=== PATIENT | male | born 1970 ===

== ENCOUNTER 2022-04-16 13:22 | Outpatient (REF) | payer OTHER, SELFPAY ==
[2022-04-16 15:30] LABS: HCT 42.6 % (40.0-50.0); HGB 14.6 g/dL (13.5-17.5); MCHC 34.3 % (32.0-36.0); MCV 85 fL (80-95); MPV 10.4 fL (8.0-11.0); Platelet Count 295 10^3/uL (130-400); RBC 5.03 10^6/uL (4.36-5.78); RDW 12.9 % (11.8-14.1); RDW-SD 39.6 fL; WBC 7.59 10^3/uL (4.4-10.8)
[2022-04-16 15:46] LABS: ALT 23 U/L (16-63); AST 17 U/L (15-37); Albumin 4.4 g/dL (3.4-5.0); Alkaline Phosphatase 70 U/L (46-116); Anion Gap 11.1 mmol/L (3-11); BUN 16 mg/dL (7-18); Bilirubin, Total 0.8 mg/dL (0.2-1.0); CO2 24.9 mmol/L (21.0-32.0); CREATININE 0.9 mg/dL (0.70-1.30); Calcium 9.6 mg/dL (8.5-10.1); Calculated LDL 190 mg/dL (<100); Chloride 103 mmol/L (98-107); Cholesterol 270 mg/dL (<200); Glucose 104 mg/dL (74-106); HDL Cholesterol 50 mg/dL (40-60); Sodium 139 mmol/L (136-145); TSH (W/Ref FT4) 3.76 uIU/mL (0.36-3.74); Total Protein 8.1 g/dL (6.4-8.2); Triglyceride 154 mg/dL (<150)
[2022-04-16 16:08] LABS: FREE T4 0.75 ng/dL (0.76-1.46)
== END 2022-04-16 13:23 | disposition home or self-care (01) ==
LOC: NCHCN 13:22
PROVIDERS: PCP Nurse Practitioner Family; Visit Provider Nurse Practitioner Family
DX: Z00.00 Encounter for general adult medical examination without abnormal findings (principal); R53.83 Other fatigue; Z13.220 Encounter for screening for lipoid disorders
CPT/HCPCS: 80053; 80061; 85027; 84439; 84443

== ENCOUNTER 2022-10-15 15:13 | Outpatient (REF) | payer OTHER, SELFPAY ==
--- OUTSIDE RECORDS SUMMARY | 2022-10-15 15:17 | XMS_ITS | Continuity of Care Document ---
Author Name Unknown Organization [facility] Address [address] [place] [address] Care Team Providers Care Channeler Runner Name Role Phone Solange Pandey Primary Care Physician [phone] Encounter [facility] Date(s): 06/14/22 - 06/14/22 [facility] [address] [place] [address] Discharge Disposition: Home Allergies, Adverse Reactions, Alerts Substance Reaction Severity Status Seasonal Mild Active Assessment and Plan Future Appointments Medications B-Complex with B-12 0 Refill(s) Start Date: 05/17/22 Status: Ordered clonazePAM 0.25 mg oral tablet, disintegrating 0.025 mg/kg =, Oral, QID, 0 Refill(s) Start Date: 05/17/22 Status: Ordered escitalopram 10 mg oral tablet 10 mg = 1 tab, Oral, Daily, # 30 tab, 0 Refill(s) Start Date: 05/17/22 Status: Ordered Fiber Choice 1.5 g oral tablet, chewable 1.5 g = 1 tab, Chewed, Daily, # 90 tab, 0 Refill(s) Start Date: 05/17/22 Status: Ordered Nature's Bounty Red Krill Oil 0 Refill(s) Start Date: 05/17/22 Status: Ordered omeprazole 20 mg oral delayed release capsule 20 mg = 1 cap, Oral, Daily, # 90 cap, 0 Refill(s) Start Date: 05/17/22 Status: Ordered Vital-D oral tablet 1 tab, Oral, Daily, # 100 tab, 0 Refill(s) Start Date: 05/17/22 Status: Ordered vitamin E 0 Refill(s) Start Date: 05/17/22 Status: Ordered Problem List Condition Confirmation Course Effective Dates Status Health St atus Informant Allergic rhinitis Confirmed Active Anxiety Confirmed Active Fatigue Confirmed Active GERD (gastroesophageal reflux disease) Confirmed Active Hand pain Confirmed Active Panic attack Confirmed Active Snoring Confirmed Active Social History Social History Type Response Tobacco Never tobacco user T obacco Use:. Sex Patient Care team information Care Team Personnel Name: Solange Pandey Position: No Access Member Role: Primary Care Physician Address: Address: [address] [place] [phone]
--- OUTSIDE RECORDS SUMMARY | 2022-10-15 15:17 | XMS_ITS | Continuity of Care Document ---
Author Name Unknown Organization [facility] Address [address] [place] [address] Care Team Providers Care Sap Data Architect Name Role Phone Solange Pandey Primary Care Physician [facility] Date[facility] 05/20/22 - 05/20/22 [facility] [address] [place] [address] Encounter Diagnosis Snoring(Discharge Diagnosis) - 05/20/22 Restless leg syndrome(Discharge Diagnosis) - 05/20/22 Discharge Disposition: Home or Self Care Attending Physician: Laurie Kenny CUPOLA MELTER HELPER Allergies, Adverse Reactions, Alerts Substance Reaction Severity Status Seasonal Mild Active Assessment and Plan Future Appointments Functional Status 05/20/22 Other exposure to Infectious Disease Non e Medications B-Complex with B-12 0 Refill(s) Start [...] Never tobacco user T obacco Use:. Sex Physician Outpatient Note * Laurie Kenny CUPOLA MELTER HELPER: PERFORM Event Display: Office Clinic Note Physician Authored Date: [id number] ROMEO HOWE :1970 Age:51 years Sex:Male Visit Date:05/20/2022 Primary Care Physician: Solange Pandey Chief Complaint new patient sleep consult History of Present Illness Sleep Medicine New Patient Consult pleasant 51 year old??male??who presents for sleep consultation at kind request of??Solange Pandey NP ?? Past medical history includes??allergic rhinitis, GERD, anxiety (escitalopram 15mg, clonazepam PRN) ?? PREVIOUS SLEEP EVALUATION:None? CHIEF COMPLAINT/HISTORY OF PRESENT ILLNESS: Patients reports biggest problem with sleep is??snoring, witnessed apneas,??nonrestorative sleep,??frequent nocturnal awakenings, excessive daytime sleepiness. ?? SLEEP SCHEDULE:??Bedtime 10-11 pm, Sleep onset latency??less than 30??minutes, wakes 3-5 times per night, Able to fall back asleep within??few minutes, Wake time 7 - 10am. Naps??None regularly. SLEEP ENVIRONMENT:Pets wake patient up.?? SLEEP QUALITY:Poor?? DAYTIME/NEUROCOGNITIVE FUNCTION:Low energy.??Sleepy. No problems with memory, concentration, mood.?? SLEEP RELATED THOUGHTS/BEHAVIORS:Stressful thoughts interfering with sleep.___?? SLEEP BREATHING:Loud snoring.Witnessed apneas.Waking up gasping for air.__?? LEG SYMPTOMS:Legs move before sleep and/or during sleep.Leg movements worse in the evening. ?? MOVEMENT SYMPTOMS:??Sleeptalk.??(Infrequent). DREAM SYMPTOMS:Dream enactment behavior:??Hitting barajas during bad dreams or picking things up in real life that he is dreaming about. Happens a few times a month, last episode a??weeks ago??Deny hypnogogic or hynopompic hallucinations..??No disturbing dreams.. WEAKNESS SYMPTOMS:Deny cataplexy related symptoms.Deny sleep paralysis.?? DRIVING:Experienced drowsy driving in past related to sleep deprivation..Follows drowsy driving precautions.?? OTHER PERTINENT SYMPTOMS: ??- Takes clonazepam PRN to help him fall asleep, hasn't taken in a few week.s ??- Uses fitbit to track his sleep and nocturnal awakenings. PRODUCT/SUBSTANCE USE:??No smoking.??_.??1-2 alcohol drinks daily.??Previous heavier alcohol use, 4drinks per night. Recreational MJ use. SOCIAL HISTORY:??Unemployed, searching for work.??_. Review of Systems A 10-point REVIEW OF SYSTEM was obtained and reviewed, includes CONSTITUTIONAL, EYES, NOSE, THROAT,RESPIRATORY, HEART, GASTROINTESTINAL, UROLOGIC, MUSCULOSKELETAL, PSYCHIATRY, SKIN systems. Pertinent symptoms are discussed in history, otherwise negative. Physical Exam General well appearing??statedage, no acute distress,??obesebuild PSYCHIATRIC: well groomed, fluent speech, good insight, linear thought process, good eye contact,balanced NEUROLOGIC: alert, oriented, symmetric facial expression Assessment/Plan 1.??Snoring??R06.83 Romeo Howe is a pleasant 51 year old male here for new patient sleep consult. Suspect ObstructiveSleep Apnea based on snoring, witnessed apneas, waking up gasping for air, frequent nocturnal awakenings, nonrestorative sleep, excessive daytime sleepiness, recent significant weight gain that exacerbated his snoring, hx of drowsy driving, ESS 5/24 (this is likely an underestimation), [place] Questionnaire 2/3.?? Pt also gives hx suggestive of sleep-related movement disorder ie. restless legs at night. ?? We had a thorough discussion of Obstructive Sleep Apnea, including pathophysiology, associated fpc cardiovascular, neurocognitive, and overall health effects, and importance of treatment. Today, we discussed what to expect on the night of his sleep study. ?? Adhere to drowsy driving precautions as applicable. ?? Weight loss encouraged. ?? Treatment options discussed. ?? Proceed with Diagnostic Polysomnogram. In-facility sleep study requested PSG Instructions: Obtain supine and lateral position sleep for comparison. Document medications taken on night of PSG. 2.??Restless leg syndrome??G25.81 Patient gives hx of restless legs at night. Reports the movements don't bother him significantly when trying to fall asleep, but often do wake him up from sleep. Re-eval after diagnostic PSG. This visit was performed virtually using synchronous audio-visual connection via Zoom. As such, thephysical examination is necessarily limited. The risks and benefits of the use of this alternative platform were discussed with the patient and or guardian and verbal consent was obtained. My assessment and plans are based on such examination. Further evaluation, including in-person examination, may be needed depending on the response to management or today's recommendation.? The patient is??home.?? The provider is??home. ?? The patient has been positively identified and has consented to a video visit. ?? I provided greater than??45??minutes in the care of this patient, more than half the time was spentin [id number] counseling. ?with comorbidities of allergic rhinitis, GERD, anxiety (escitalopram 15mg, clonazepam PRN) ? Clinical Data Reviewed: Sidney Sleepiness Scale: 5/24 ?? [place] Questionnaire: 2/3 ?? Sleep Clinical Timeline:? 05/20/2022: New patient sleep consult at the kind request of Solange Gaffney NP. Suspect Obstructive Sleep Apnea based on snoring, witnessed apneas, waking up gasping for air, frequent nocturnal awakenings, nonrestorative sleep, excessive daytime sleepiness, recent significant weight gain that exacerbated his snoring, hx of drowsy driving, ESS 5/24 (this is likely an underestimation), [place] Questionnaire 2/3.??Ordered diagnostic PSG. ? Today's Assessment and Plan: See above. ?? Follow up: 2 months or sooner if needed. ? Remote Scribed by Mike Trevizo Future Orders [id number] SL Diagnostic PSG, 05/20/22, patient is switching to cobra, requeste waiting one week from today before reaching out to his insurance for approval, Future Order, Snoring Restless leg syndrome Problem List/Past Medical History Ongoing Allergic rhinitis Anxiety Fatigue GERD (gastroesophageal reflux disease) Hand pain Panic attack Snoring Historical No qualifying data Medications B-Complex with B-12 clonazePAM 0.25 mg oral tablet, disintegrating, 0.025 mg/kg, Oral, QID escitalopram 10 mg oral tablet, 10 mg= 1 tab, Oral, Daily Fiber Choice 1.5 g oral tablet, chewable, 1.5 g= 1 tab, Chewed, Daily Nature's Bounty Red Krill Oil omeprazole 20 mg oral delayed release capsule, 20 mg= 1 cap, Oral, Daily Vital-D oral tablet, 1 tab, Oral, Daily vitamin E Allergies Seasonal Social History Alcohol Current, Beer, Wine, 3-5 times per week- Comments: 5 a week Electronic Cigarette/Vaping Electronic Cigarette Use: Never. Home/Environment Lives with Spouse. Living situation: Home/Independent. Nutrition/Health Caffeine intake amount: 1 c black tea am, g- fuel sports drink 300mg. Substance Use Current, Marijuana, Daily- Comments: uses vape pen, edibales, and flower Tobacco Never tobacco user Tobacco Use:. Electronically Signed on 05/20/22 02:11 PM Laurie Kenny CUPOLA MELTER HELPER Electronically Signed on 05/20/22 02:09 PM Mike Trevizo Patient Care team information Care Team Personnel Name: Solange Pandey Position: No Access Member Role: Primary Care Physician Address: Address: [address] [place] [id number]
--- OUTSIDE RECORDS SUMMARY | 2022-10-15 15:17 | XMS_ITS | Continuity of Care Document ---
Author Name Unknown Organization [facility] Address [address] [place] [address] Care Team Providers Care Senior Construction Estimator Name Role Phone Solange Pandey Primary Care Physician Encounter [facility] Date(s): 08/11/22 - 08/11/22 [facility] [address] [place] [address] Discharge Disposition: Home Allergies, Adverse Reactions, Alerts Substance Reaction Severity Status Seasonal Mild Active Medications B-Complex with B-12 0 Refill(s) Start [...] Member Role: Primary Care Physician Address: Address: [address] [place] [phone]
[2022-10-15 16:38] LABS: Calculated LDL 217 mg/dL (<100); Cholesterol 299 mg/dL (<200); HDL Cholesterol 50 mg/dL (40-60); TSH 6.56 uIU/mL (0.36-3.74); Triglyceride 163 mg/dL (<150)
== END 2022-10-15 15:14 | disposition home or self-care (01) ==
LOC: NCHCN 15:13
PROVIDERS: PCP Nurse Practitioner Family; Visit Provider Nurse Practitioner Family
DX: E03.9 Hypothyroidism, unspecified (principal); E78.5 Hyperlipidemia, unspecified
CPT/HCPCS: 80061; 84443

== ENCOUNTER 2022-12-17 11:34 | Outpatient (REF) | payer OTHER, SELFPAY ==
[2022-12-17 15:59] LABS: ALT 43 U/L (16-63); AST 18 U/L (15-37); Albumin 3.9 g/dL (3.4-5.0); Alkaline Phosphatase 76 U/L (46-116); Anion Gap 10.9 mmol/L (3-11); BUN 13 mg/dL (7-18); Bilirubin, Total 1.1 mg/dL (0.2-1.0); CO2 24.1 mmol/L (21.0-32.0); Calcium 9.4 mg/dL (8.5-10.1); Calculated LDL 112 mg/dL (<100); Chloride 104 mmol/L (98-107); Cholesterol 185 mg/dL (<200); Estimated GFR 91.69 (mL/min/1.73m2); Glucose 108 mg/dL (74-106); HDL Cholesterol 52 mg/dL (40-60); Sodium 139 mmol/L (136-145); TSH 0.45 uIU/mL (0.36-3.74); Total Protein 7.7 g/dL (6.4-8.2); Triglyceride 106 mg/dL (<150)
== END 2022-12-17 11:35 | disposition home or self-care (01) ==
LOC: NCHCN 11:34
PROVIDERS: PCP Nurse Practitioner Family; Visit Provider Nurse Practitioner Family
DX: E78.5 Hyperlipidemia, unspecified (principal); E03.9 Hypothyroidism, unspecified
CPT/HCPCS: 80053; 80061; 84443

== ENCOUNTER 2023-04-22 12:07 | Outpatient (REF) | payer OTHER, SELFPAY ==
[2023-04-22 16:26] LABS: Hemoglobin A1C 5.8 % (<5.7)
[2023-04-22 17:13] LABS: Vitamin D 25 Total 34.7 ng/mL (30-100)
[2023-04-22 17:16] LABS: ALT 59 U/L (16-63); AST 26 U/L (15-37); Albumin 4.1 g/dL (3.4-5.0); Alkaline Phosphatase 80 U/L (46-116); BUN 18 mg/dL (7-18); Bilirubin, Total 0.9 mg/dL (0.2-1.0); CREATININE 0.8 mg/dL (0.70-1.30); Calcium 9.6 mg/dL (8.5-10.1); Calculated LDL 130 mg/dL (<100); Chloride 106 mmol/L (98-107); Cholesterol 209 mg/dL (<200); Estimated GFR 107.82 (mL/min/1.73m2); Glucose 109 mg/dL (74-106); HDL Cholesterol 53 mg/dL (40-60); Potassium 4.5 mmol/L (3.5-5.1); Sodium 142 mmol/L (136-145); TSH 0.58 uIU/mL (0.36-3.74); Total Protein 7.4 g/dL (6.4-8.2); Triglyceride 131 mg/dL (<150)
== END 2023-04-22 12:08 | disposition home or self-care (01) ==
LOC: NCHCN 12:07
PROVIDERS: PCP Nurse Practitioner Family; Visit Provider Nurse Practitioner Family
DX: Z00.00 Encounter for general adult medical examination without abnormal findings (principal); E03.9 Hypothyroidism, unspecified; Z13.1 Encounter for screening for diabetes mellitus; Z13.21 Encounter for screening for nutritional disorder; Z13.6 Encounter for screening for cardiovascular disorders; R79.89 Other specified abnormal findings of blood chemistry
CPT/HCPCS: 80053; 80061; 82306; 83036; 84443

== ENCOUNTER → 2023-06-16 18:26 | Outpatient (CLI) | payer OTHER, SELFPAY ==
--- NOTE | 2023-06-16 14:36 | DI.RAD_ITS ---
Exam(s) XR FOOT LT COMPLETE EXAM: XR FOOT LT COMPLETE CLINICAL HISTORY: Bilat foot pain. TECHNIQUE: 2D digital imaging was performed of the left foot. Three images were obtained. AP, obli que and lateral views were obtained. COMPARISON: No exams were available for comparison FINDINGS: BONES: No acute fracture is present. No bony destructive lesion is seen. JOINTS: No dislocation present. The joint spaces are well maintained. SOFT TISSUE: Normal. IMPRESSION: No acute abnormality. DATA REPOSITORY: RADIATION DOSE DELIVERED:
--- NOTE | 2023-06-16 14:42 | DI.RAD_ITS ---
Exam(s) XR FOOT RT COMPLETE EXAM: XR FOOT RT COMPLETE CLINICAL HISTORY: Pain in RT foot. TECHNIQUE: 2D digital imaging was performed of the right foot. Three images were obtained. AP, obl ique and lateral views were obtained. COMPARISON: No exams were available for comparison FINDINGS: BONES: No acute fracture is present. No bony destructive lesion is seen. There is a small enthesophyt e at the posterior calcaneus. JOINTS: No dislocation present. The joint spaces are well maintained. SOFT TISSUE: Normal. IMPRESSION: Small enthesophyte at the posterior calcaneus. DATA REPOSITORY: RADIATION DOSE DELIVERED:
== END ==
PROVIDERS: PCP Nurse Practitioner Family; Visit Provider Physician Assistant Medical
DX: M79.671 Pain in right foot (principal); M77.31 Calcaneal spur, right foot
CPT/HCPCS: 73630

== ENCOUNTER 2024-03-09 07:12 | Day surgery (SDC) | payer OTHER, SELFPAY ==
[2024-03-09 07:25] VITALS: BP 128/90; PULSE 64; RESP 16; TEMP 36.2; O2SAT 97
--- NOTE | 2024-03-09 07:46 | ANES.PREOP_ITS ---
General Info Date of Service Date Performed: 03/09/24 Height: 6 ft Weight: 112.491 kg Body Mass Index (BMI): 33.6 Surgical Procedure: Operation Date: 03/09/24 08:20 Proposed Procedure Side Surgeon rachel Stewart, Meds Allergies and Home Medications Allergies Allergy/AdvReac Type Severity Reaction Status Date / Time No Known Allergies Allergy Unverified 03/09/24 07:31 Home Medication ?Medication ?Instructions ?Recorded cholecalciferol (vitamin D3) 50 50 mcg PO DAILY 01/04/24 mcg (2,000 unit) capsule escitalopram oxalate 10 mg tablet 10 mg PO DAILY 01/04/24 levothyroxine 125 mcg capsule 125 mcg PO DAILY 01/04/24 omeprazole 20 mg capsule,delayed 20 mg PO DAILY 01/04/24 release rosuvastatin 5 mg tablet 5 mg PO HS 01/04/24 bisacodyl 5 mg tablet,delayed 5 mg PO ONCE #4 tabs 01/26/24 release (Dulcolax (bisacodyl)) clonazepam 0.25 mg disintegrating 0.25 mg PO DAILY PRN 01/26/24 tablet polyethylene glycol 3350 17 17 g PO ONCE #238 grams 01/26/24 gram/dose oral powder Current Visit Medications: Current Medications Generic Name Dose Route Start Last Admin Trade Name Freq PRN Reason Stop Dose Admin Hyoscyamine Sulfate 0.125 mg 03/09/24 00:45 Hyoscyamine 0.125 Mg Sl/Oral/Chew SL 04/08/24 00:44 DIRECTED PRN Ringer's Solution 1,000 mls @ 80 mls/hr 03/09/24 07:15 IV 04/08/24 07:14 [facility] IV Miscellaneous Supplies 1 each 03/09/24 06:00 Iv Access IV 03/09/24 23:59 DIRECTED MILLIE Ondansetron HCl 4 mg 03/09/24 00:45 Ondansetron 4 Mg/2 Ml Vial IVP 04/08/24 00:44 Q4H PRN PRN Nausea / Vomiting Sodium Chloride 0 ml 03/09/24 06:00 Normal Saline Flush 10 Ml Syr IV 03/09/24 23:59 PRN PRN Sodium Chloride 0 ml 03/09/24 06:00 Normal Saline 10 Ml Vial IJ 03/09/24 23:59 DIRECTED PRN Sterile Water 0 ml 03/09/24 06:00 Water,Injection,Sterile 10 Ml Vial IJ 03/09/24 23:59 DIRECTED PRN PFSH Active Problems Active Problems: Problem Status Onset Code Acute dermatitis Acute L30.9 Medical History Medical History VERNON (obstructive sleep apnea) Snoring Allergic rhinitis Hyperlipidemia Hand pain Hypothyroidism Malignant melanoma GERD (gastroesophageal reflux disease) Anxiety disorder History of psychiatric disorder Surgical History Surgical History Hx of endoscopy Tobacco Smoking/Tobacco Use Status: Never Alcohol Alcohol Intake: current Alcohol intake frequency: a few times a week Alcohol type: hard liquor Substance Use Substance use: Daily Substance use type: marijuana Details: 03/08/24 smokes marijuana Vital Signs and Lab Results Vital Signs Most Recent Vital Signs in EMR: Most Recent Vital Signs Temp 36.2 C L 03/09/24 07:25 Temp Pulse Resp BP Pulse Ox 36.2 C L 64 16 128/90 97 03/09/24 07:25 03/09/24 07:25 03/09/24 07:25 03/09/24 07:25 03/09/24 07:25 Lab Results Blood Type / Crossmatch: No Data to Display Complete Blood Count: No Data to Display Complete Metabolic Panel: No Data to Display Liver Function Panel: No Data to Display Coagulation Panel: No Data to Display Cardiac Panel: No Data to Display Arterial Blood Gas: No Data to Display Venous Blood Gas: No Data to Display Pancreas Panel: No Data to Display Thyroid Panel: No Data to Display Infectious Disease: No Data to Display Blood Cultures: No Data to Display Toxicology Panel: No Data to Display Anesthesia Assessment and Plan Anesthesia History Personal History: No History of General Anesthesia Family History: No Family History of Anesthesia Complications Exercise Tolerance Exercise Tolerance: Metabolic Equivalents>4 Pertinent Negatives Pertinent Negatives: No Symptoms of GERD, No Major Cardiovascular Symptoms or Complaints, No Major Pulmonary Symptoms or Complaints and No History of CVA/TIA Cardiac & Pulmonary Exam Cardiac Exam: Normal S1/S2 Heart Sounds Pulmonary Exam: Clear Bilateral Breath Sounds Implantable Cardiac Device Does patient have a Pacemaker or an ICD?: No Airway Exam Known Difficult Airway: No Mallampati Class: 2 Mouth Opening: Normal (> 3cm) Thyromental Distance: Greater than 3 cm Neck Range of Motion: Full ROM Neck Circumference: Normal Teeth Condition: Normal Dentition ASA Classification ASA Score: ASA 2 Emergency Case?: No NPO Status NPO Status: NPO Clears >2 hours, Solids >8 hours Anesthesia Plan Resuscitation Status: Full Code Anesthesia Technique: General Anesthesia Airway Planned: Natural Airway Monitors Used: Standard Monitors Preoperative Comments:: 53 y/o male with history of GERD, HLD, hypothyroidism, anxiety, malignant melanoma and VERNON with CPAP, presents for colonoscopy screen ing. He denies a family history of colon cancer. Daily marijuana.
[2024-03-09] MEDS: Lactated Ringers 1,000 ML 80 ML IV (07:53)
[2024-03-09 07:56] VITALS: BMI 33.6
[2024-03-09 08:55] VITALS: BP 124/88; PULSE 67; RESP 16; TEMP 36.6; O2SAT 95
--- NOTE | 2024-03-09 09:10 | PDOC.DSDIS_ITS ---
Date of service: 03/09/24 Discharge Plan Disposition Patient Disposition: Home Discharge Details Reason For Visit: colon scope Attending Provider: Ene Stewart Primary Care Provider: Lottie Méndez Home Meds and New Rx's Prescriptions: Continued escitalopram oxalate 10 mg tablet 10 mg PO DAILY levothyroxine 125 mcg capsule 125 mcg PO DAILY omeprazole 20 mg capsule,delayed release(DR/EC) 20 mg PO DAILY rosuvastatin 5 mg tablet 5 mg PO HS cholecalciferol (vitamin D3) 50 mcg (2,000 unit) capsule 50 mcg PO DAILY clonazepam 0.25 mg tablet,disintegrating 0.25 mg PO DAILY PRN Discontinued bisacodyl [Dulcolax (bisacodyl)] 5 mg tablet,delayed release (DR/EC) 5 mg PO ONCE Qty: 4 0RF Rx Instructions: Take per colonoscopy instructions provided by ordering providers office polyethylene glycol 3350 17 gram/dose powder 17 g PO ONCE Qty: 238 0RF Rx Instructions: Take per colonoscopy instructions provided by ordering providers office Discharge Instructions Additional Instructions: DSU Colonoscopy Post- Op Instructions Instructions for Everyone who is given Anesthesia: For your safety, please do the following for the next twenty-four (24) hours: *Do Not operate a motor vehicle (car, truck, motorcycle, etc.) *Do Not drink alcoholic beverages or use any recreational drugs for the first 24 hours or while taking pain medications. The medications in your body may have a reaction that can be dangerous. *Do Not make any important decisions or sign any important papers. Findings: Normal Follow up: Repeat colonoscopy in 10 years time 1. No lifting over 20 pounds or strenuous activity for the first 24 hours after your procedure. After 24 hours there are no restrictions on your activity but you may feel fatigued for a few days. 2. After you arrive home you may have a light meal and return to your normal diet as you can tolerate it without feeling sick to your stomach. 3. You may have a bloated, gaseous feeling in your belly (abdomen) after a colonoscopy. Passing gas and belching will help. Walking or lying down on your left side with your knees flexed may relieve the discomfort. Call the office at [phone] (Office) or [phone] (Hospital) right away if you notice any of the following: a.Vomiting of blood or ?coffee ground stools?. b.Rectal bleeding 1Tbsp, blood clots or continuous bleeding. c.Severe belly (abdominal) pain. d.A hard distended belly (abdomen) and an inability to pass gas. 4. Please don?t expect to have a normal BM (bowel movement) for 2-3 days after your procedure. 5. If there are questions regarding the findings of your procedure, please contact your doctor 6. If you are unable to contact your doctor with a problem, contact the hospital at [phone]. 7. Continue all your regular medications unless directed otherwise. I understand the above instructions and have no questions. Signature of Patient or Adult Escort Name of Responsible Adult Escort Signature of Nurse Date/Time Stand Alone Forms: Anesthesia Discharge , Gerald Huerta (DSU) Activity:: See above Diet:: See above Discharge Orders Discharge Orders: Discharge Order (Routine); Ordered 03/09/24 Ordered By: Ene Stewart DS: Diagnosis Discharge Diagnosis (1) Screening for malignant neoplasm of colon performed: Status: Acute Asessment and Plan: The patient is seen and examined after their colonoscopy.? The patient has been able to pass gas.? They are not having abdominal pain.? They have been able to tolerate liquids and a snack.? They do not have any nausea or vomiting.? They are not having any chest pain or shortness of breath.??? They are not having any rectal bleeding. Their vital signs have been stable-see nursing notes. We discussed findings during their colonoscopy, and any biopsies that were done/polyps that were removed. The patient will be sent a letter with any biopsy results, and when to repeat the colonoscopy.-see discharge instructions. Patient was given explicit instructions to follow-up regarding colonoscopy-refer to discharge instructions.? We reviewed resumption of medications. Patient verbalized understanding and discharged in stable and satisfactory condition- See nursing notes. (2) VERNON (obstructive sleep apnea): (3) GERD (gastroesophageal reflux disease): (4) Hyperlipidemia: (5) Hypothyroidism: (6) Anxiety disorder:
[2024-03-09 09:24] VITALS: BP 108/70; PULSE 61; RESP 16; TEMP 36.6; O2SAT 94
--- NOTE | 2024-03-09 09:32 | W.ANESPOSTOP ---
Postoperative Evaluation Date, Time and Location Date Performed: 03/09/24 Time Performed: 08:55 Patient Location: Day Surgery Unit Vital Signs Most Recent Imported Vital Signs: Most Recent Vital Signs Temp Pulse Resp BP Pulse Ox 36.6 C 61 16 108/70 94 03/09/24 09:24 03/09/24 09:24 03/09/24 09:24 03/09/24 09:24 03/09/24 09:24 Pain Score Most Recent Pain Score: Most Recent Pain Score Pain Level 0 03/09/24 09:24 Assessment Mental Status: Awake (Alert & Oriented to Patient Baseline) Airway and Respiratory Function: Patent airway with normal (patient baseline) respiratory exam Cardiovascular Function: Hemodynamically Stable Hydration Status: Adequately Hydrated Nausea & Vomiting: No Nausea or Vomiting Pain: Pt. Denies Any Pain Peripheral Nerve Block: Patient did not receive a nerve block Teaching Patient Teaching: Discussed the importance of using CPAP/BiPAP during any sleep period
--- NOTE | 2024-03-13 23:03 | ROE_ITS ---
Operative Note Operative Note PRE-OP DIAGNOSIS: CRC screening POST-OP DIAGNOSIS: same SURGEON: Ene Stewart ANESTHESIA TYPE: General:No Airway Refer to Anesthesia Record ESTIMATED BLOOD LOSS: 0 PATHOLOGY: none sent COMPLICATIONS: None Patient was transported to: same day Patient's condition: stable Procedure Description: After informed consent was obtained, explaining risks of the procedure, including but not limits to: bleeding, infections, complications of anesthesia, perforations (which may require antibiotics and /or surgery and stay in the hospital), and abdominal pain/cramping. The patient was taken to the procedure room and placed in a left decubitous position. Monitors were applied and a time out was done. The patients name, date of , procedure, allergies to medications and metal in their body was reviewed. The patient was then sedated. Once sedated and comfortable a rectal exam was done. External exam was normal. Internal exam revealed a normal sphincter tone and no palpable masses. The prostate no palpable masses The previously lubricated Olympus scope was then introduced (see RN notes for scope number) and retrofelexed. No internal hemorrhoids were identified. The scope was then advanced to the cecum without difficulty. The TI and appendiceal orifice were identified. The scope was then slowly retracted over 9 minutes back into the rectum. Polyps: none. Diverticula: none. The mucosa is pink and healthy w/ a normal vascular pattern. The scope was removed, and the patient was woken up and taken back to Same day surgery in stable condition. The patient tolerated the procedure well and there were no immediate comp lications. Follow up: The patient should follow up in 10 years, unless they develop changes in bowel habits or other new gastrointestinal complaints. Date of Procedure: 03/09/24
== END 2024-03-09 09:58 | disposition home or self-care (01) ==
PROVIDERS: PCP Physician Assistant Medical; Visit Provider Surgery
PROC: 0DJD8ZZ Inspection of Lower Intestinal Tract, Via Natural or Artificial Opening Endoscopic (ICD-10-PCS; CPT 45378; principal; 2024-03-09 08:15)
DX: Z12.11 Encounter for screening for malignant neoplasm of colon (principal); G47.33 Obstructive sleep apnea (adult) (pediatric)
CPT/HCPCS: 45378; J2003; J2704

== ENCOUNTER 2024-04-26 13:20 | Outpatient (REF) | payer OTHER, SELFPAY ==
[2024-04-26 15:31] LABS: Hemoglobin A1C 5.7 % (<5.7)
[2024-04-26 15:45] LABS: ALT 31 U/L (16-63); AST 22 U/L (15-37); Albumin 4.6 g/dL (3.4-5.0); Alkaline Phosphatase 75 U/L (46-116); Anion Gap 12.4 mmol/L (3-11); BUN 13 mg/dL (7-18); Bilirubin, Total 1.25 mg/dL (0.2-1.0); CO2 24.6 mmol/L (21.0-32.0); CREATININE 0.9 mg/dL (0.70-1.30); Calcium 9.8 mg/dL (8.5-10.1); Calculated LDL 112 mg/dL (<100); Chloride 105 mmol/L (98-107); Cholesterol 196 mg/dL (<200); Glucose 107 mg/dL (74-106); HDL Cholesterol 59 mg/dL (40-60); Potassium 4.3 mmol/L (3.5-5.1); Sodium 142 mmol/L (136-145); TSH 1.23 uIU/mL (0.36-3.74); Total Protein 7.8 g/dL (6.4-8.2); Triglyceride 127 mg/dL (<150)
== END 2024-04-26 13:21 | disposition home or self-care (01) ==
LOC: NCHCN 13:20
PROVIDERS: PCP Physician Assistant Medical; Visit Provider Nurse Practitioner Family
DX: Z00.00 Encounter for general adult medical examination without abnormal findings (principal); E03.9 Hypothyroidism, unspecified; E78.5 Hyperlipidemia, unspecified
CPT/HCPCS: 80053; 80061; 83036; 84443